=== PATIENT | male | born 1965 | race African-American/Black ===

== ENCOUNTER 2016-05-06 09:26 | Day surgery (SDC) | payer OTHER ==
[2016-05-05 14:15] VITALS: BMI 33.9
[2016-05-06] MEDS ORDERED: SUCCINYLCHOLINE CHLORIDE 200 MG/10 ML VIAL ONE (09:48)
[2016-05-06] MEDS ORDERED: PROPOFOL 60 ML ONE (09:48)
[2016-05-06] MEDS ORDERED: LIDOCAINE HCL/PF 2% SDV 5ML VIAL ONE (09:48)
[2016-05-06 09:58] VITALS: TEMP 97.9
[2016-05-06 13:40] VITALS: BP 114/60; PULSE 78
--- NOTE | 2016-05-07 15:09 | PATH ---
Surgical Pathology Report Patient Name: SUSANA ALFORD [facility]. Rec. #: [id number] /Age/Gender: 1965 (Age: 50) / M Account: [id number] Location: U-ENDOSCOPY Taken: 05/06/2016 Received: 05/06/2016 Reported: 05/07/2016 Physicians: Tristen Jj D.O. Specimen(s) Received BX POLYP RECTOSIGMOID COLON Clinical History Screening colonoscopy Colon polyps Final Diagnosis COLON, RECTOSIGMOID, POLYPS, BIOPSY: HYPERPLASTIC POLYPS. Electronically Signed Trey Damico M.D. Gross Description Received in formalin, labeled "biopsy polyps rectosigmoid:" are 2 sierra, irregular portions of soft tissue averaging 0.3 cm in greatest dimension. The specimens are submitted in toto in one cassette. /05/06/201605/06/2016
== END 2016-05-06 13:55 | disposition home or self-care (01) ==
LOC: JASU-ENDO 09:26
PROVIDERS: ATTEND Internal Medicine Gastroenterology
PROC: 0DBN8ZX Excision of Sigmoid Colon, Via Natural or Artificial Opening Endoscopic, Diagnostic (ICD-10-PCS; principal; 2016-05-06 09:00)
DX: Z12.11 Encounter for screening for malignant neoplasm of colon (principal); D12.7 Benign neoplasm of rectosigmoid junction; K64.8 Other hemorrhoids
CPT/HCPCS: 88305-TC

== ENCOUNTER 2017-09-03 11:48 | Emergency (ER) | payer OTHER ==
[2017-09-03 11:55] VITALS: BP 107/77; PULSE 100; TEMP 98.2; BMI 38.3
[2017-09-03] MEDS ORDERED: KETOROLAC TROMETHAMINE 30 MG/1 ML VIAL IM ONE (12:04)
[2017-09-03] MEDS ORDERED: KETOROLAC TROMETHAMINE 30 MG/1 ML VIAL ONE (12:10)
--- NOTE | 2017-09-03 12:18 | PDOC ---
History of Present Illness - General Chief Complaint: Pain, Acute Stated Complaint: KNEE PAIN Time Seen by Provider: 09/03/17 11:53 - History of Present Illness Initial Comments: 09/03/17 12:25 52 yo M w a prior back surgery in Jan 2017, former drug use, is here bc his left knee gave out on him one hour ago and he can't bear weight on his knee. He was here on August 19 for the same problem and was sent home on pain meds and with a PT recommendation. He says the PT has not helped. He is not in active pain but his knee hurts when he bears any weight on it. He is on methadone 40 mg. He denies recent fevers, headaches, knee trauma, N/V/D, infections, chest pain, SOB, urinary or bowel problems, IVDU. Past History - Past Medical History Allergies/Adverse Reactions: Allergies Allergy/AdvReac Type Severity Reaction Status Date / Time No Known Drug Allergies Allergy Verified 10/16/16 17:00 Home Medications: Ambulatory Orders Methadone (Detox) [Dolophine -] 40 mg PO DAILY 08/23/13 Furosemide [Lasix -] 20 mg PO BID 01/19/14 Atorvastatin Ca [Lipitor] 40 mg PO HS #30 tablet 01/25/14 Asthma: Yes (hx BRONCHITIS) COPD: No - Surgical History Abdominal Surgery: Yes Appendectomy: Yes (1978) - Immunization History Immunization Up to Date: No - Suicide/Smoking/Psychosocial Hx Smoking Status: Yes Smoking History: Unknown if ever smoked Have you smoked in the past 12 months: No Number of Cigarettes Smoked Daily: 7 If you are a former smoker, when did you quit?: 2013 Information on smoking cessation initiated: No 'Breaking Loose' booklet given: 01/19/14 Hx Alcohol Use: No Drug/Substance Use Hx: Yes (INTRANASAL HEROIN-pt denies use @present) Substance Use Type: Heroin, Prescribed Hx Substance Use Treatment: Yes (METHADONE) Review of Systems - Review of Systems Comments:: 09/03/17 12:29 Left Knee: denies swelling. Positive for pain. Can't bear weight. MUSCULOSKELETAL: Absent: myalgia, arthralgia, joint swelling CONSTITUTIONAL: Absent: fever, chills, diaphoresis, generalized weakness, malaise, loss of appetite HEENT: Absent: rhinorrhea, nasal congestion, throat pain, throat swelling, difficulty swallowing, mouth swelling, ear pain, eye pain, visual Changes CARDIOVASCULAR: Positive: Peripheral edema Absent: chest pain, syncope, palpitations, irregular heart rate, lightheadedness , RESPIRATORY: Positive: Wheezing Absent: cough, shortness of breath, dyspnea with exertion, orthopnea, stridor, hemoptysis GASTROINTESTINAL: Absent: abdominal pain, abdominal distension, nausea, vomiting, diarrhea, constipation, melena, hematochezia GENITOURINARY: Absent: dysuria, frequency, urgency, hesitancy, hematuria, flank pain, genital pain SKIN: Absent: rash, itching, pallor HEMATOLOGIC/IMMUNOLOGIC: Absent: easy bleeding, easy bruising, lymphadenopathy, frequent infections ENDOCRINE: Absent: unexplained weight gain, unexplained weight loss, heat intolerance, cold intolerance NEUROLOGIC: Absent: headache, focal weakness or paresthesias, dizziness, unsteady gait, seizure, mental status changes, bladder or bowel incontinence PSYCHIATRIC: Absent: anxiety, depression, suicidal or homicidal ideation, hallucinations. *Physical Exam - Vital Signs Last Vital Signs Temp Pulse Resp BP Pulse Ox 98.2 F 100 H 18 107/77 98 09/03/17 11:53 09/03/17 11:53 09/03/17 11:53 09/03/17 11:53 09/03/17 11:53 - Physical Exam Comments: 09/03/17 12:32 Left Knee: The knee is not swollen or erythematous. It looks the same on external appearance to the R knee. It is not warm. There is decreased strength on extension on L knee compared to the R. Equal strength on flexion. normal sensation in both knees. Negative anterior and posterior drawer test. Patient walks with a limp and could not adequately assess for jude or thesaly given lack of ability to bear weight on knee. There is no bony tenderness at the patella or the head of the fibula. Patient is able to flex his knee more than 90 degrees. GENERAL: Patient is somnolent. Well developed, well nourished. No acute distress. HEENT: Normocephalic, atraumatic. PERRLA, EOMI. No conjunctival pallor. Sclera are non- icteric. Moist mucous membranes. Oropharynx is clear. NECK: Supple. Full ROM. No JVD. Carotid pulses 2+ and symmetric, without bruits. No thyromegaly. No lymphadenopathy. CARDIOVASCULAR: Regular rate and rhythm. No murmurs, rubs, or gallops. Distal pulses are 2+ and symmetric. PULMONARY: There is mild diffuse bilateral wheezing. No evidence of respiratory distress. Lungs clear to auscultation bilaterally. rales or rhonchi. ABDOMINAL: Soft. Non-tender. Non-distended. No rebound or guarding. No organomegaly. Normoactive bowel sounds. MUSCULOSKELETAL Normal range of motion at all joints. No bony deformities or tenderness. No CVA tenderness. EXTREMITIES: 2+ edema of both ankles. No cyanosis. No clubbing. No calf tenderness. SKIN: Warm and dry. Normal capillary refill. No rashes. No jaundice. NEUROLOGICAL: Somnolent. Cranial nerves 2-12 intact. No deficits to light touch and temperature in face, upper extremities and lower extremities. No motor deficits in the in face, upper extremities and lower extremities. Normoreflexic in the upper and lower extremities. Normal speech. Toes are down-going bilaterally. Gait is normal without ataxia. PSYCHIATRIC: Cooperative. Good eye contact. Appropriate mood and affect. Medical Decision Making - Medical Decision Making 09/03/17 12:37 52 yo M here with bc his knee gave out on him and he was having difficulty ambulating. He has not had any traum or recent infections. Plan: Xr to r/o trauma or fracture, pain meds, and orthopedic FU. Dispo: Xr didnt show any acute pathology. DC patient with ortho fu, pain meds, and PT referall. 09/03/17 14:32 *DC/Admit/Observation/Transfer Diagnosis at time of Disposition: Left knee pain - Discharge Dispostion Disposition: HOME Condition at time of disposition: Stable Decision to Admit order: No - Referrals Referrals: Ravinder Xie MD [Staff Physician] - - Patient Instructions Printed Discharge Instructions: DI for Knee Pain Additional Instructions: Please make sure to continue doing physical therapy for your knee. Make sure to schedule an appointment with the orthopedist we are referring you to within 2 weeks. You may take tylenol or motrin for pain. Come back to the ER if your symptoms get worse or if you develop a high fever. - Post Discharge Activity
--- NOTE | 2017-09-03 12:30 | PDOC ---
Attending Attestation - Resident Resident Name: PinacandaceTawandaJordi - ED Attending Attestation I have performed the following: I have examined & evaluated the patient, The case was reviewed & discussed with the resident, I agree w/resident's findings & plan, Exceptions are as noted - HPI HPI: 09/03/17 12:49 The patient is a 52 year old male, with a significant past medical history of bronchitis, asthma, arthritis (left knee), who presents to the emergency department complaining of left knee pain. The patient states that approximately 1 hour ago his knee gave out while he was walking and he is currently unable to bear weight on it. He denies falling at this time. Last event of this occurrence was 08/19/17 when he visited the ED here and was diagnosed with arthritis. He reports shortly attending physical therapy for the knee pain. Of note, the patient ambulates with a cane at baseline. Pt currently sleepy, states he took his methadone dose just prior to his knee giving out. The patient denies a history of heart failure, but endorses regularly taking Lasix for unknown reason. Denies changes to back pain. Denies chest pain, shortness of breath, headache, and dizziness. Denies fevers, chills, nausea, vomiting, diarrhea, and constipation. Denies dysuria, frequency, urgency, and hematuria. Allergies: NKA Past surgical history: back surgery (01/2017), appendectomy (1978) Social history: Heroin use, on methadone (last dose this morning). Former tobacco use ( ppd), quit in 2013. PCP: unknown Neurologist: Dr. Nava - Physicial Exam PE: 09/03/17 12:51 GENERAL: Awake, sleepy but arousable HEAD: No signs of trauma EYES: PERRLA, EOMI, sclera anicteric, conjunctiva clear ENT: Auricles normal inspection, hearing grossly normal, nares patent, oropharynx clear without exudates. Moist mucosa NECK: Normal ROM, supple, no lymphadenopathy, JVD, or masses LUNGS: Breath sounds equal, clear to auscultation bilaterally. No wheezes, and no crackles HEART: Regular rate and rhythm, normal S1 and S2, no murmurs, rubs or gallops ABDOMEN: Soft, nontender, normoactive bowel sounds. No guarding, no rebound. No masses EXTREMITIES: 2+ pitting symmetric edema bl LE (pt states is baseline). FROM to L knee with ttp over MCL. Negative anterior drawer test. No erythema or warmth. No palpable effusions. Able to bear weight, but with pain. BACK: No midline spinal tenderness in cervical/thoracic/lumbar region NEUROLOGICAL: Normal speech, cranial nerves intact, 5/5 strength in all 4 extremities, normal sensation to light touch in all 4 extremities, normal cerebellar exam, antalgic but steady gait with cane, normal reflexes and tone SKIN: Warm, Dry, normal turgor, no rashes or lesions noted." - Medical Decision Making 09/03/17 12:54 52yo M hx arthiritis presents to ED after "knee gave out." Denies fall. Vitals wnl. Likely arthritic pain, unlikely bony injury. Will obtain XR and re- evaluate. 09/03/17 13:13 XR with effusion. Will DC to f/u with ortho I discussed the physical exam findings, ancillary test results and final diagnoses with the patient. I answered all of the patient's questions. The patient was satisfied with the care received and felt comfortable with the discharge plan and treatment plan. The patient will call their primary care physician within 24 hours to arrange follow-up and will return to the Emergency Department with any new, persistent or worsening symptoms. <Murray Baxter - Last Filed: 09/03/17 13:13> - Medical Decision Making 09/03/17 13:21 Knee X-Ray was reviewed by Dr. Baxter and over-read by Radiology. Impression: Suprapatellar joint effusion. Degenerative changes of the patella. Marked osteoarthritis involving the medial joint compartment of the knee. Documentation prepared by Radha Kirkland, acting as medical resident for Murray Baxter MD. <Radha Kirkland - Last Filed: 09/03/17 13:22>
== END 2017-09-03 13:31 | disposition home or self-care (01) ==
LOC: JER 11:48
PROC: 3E0233Z Introduction of Anti-inflammatory into Muscle, Percutaneous Approach (ICD-10-PCS; principal; 2017-09-03)
DX: M25.562 Pain in left knee (principal); J40 Bronchitis, not specified as acute or chronic
CPT/HCPCS: 73562-TC-LT-FY; 99281-25

== ENCOUNTER 2018-09-05 21:12 | Emergency (ER) | payer OTHER ==
[2018-09-05 21:20] VITALS: BP 134/76; PULSE 117; TEMP 98.6; BMI 34.6
[2018-09-05] MEDS ORDERED: ALBUTEROL SO4 2.5/IPRATROPIUM 0.5 INH SOL 3 ML VIAL.NEB. NEB ONE (22:43)
[2018-09-05] MEDS ORDERED: PSEUDOEPHEDRINE HCL 60 MG TABLET PO ONE (22:43)
[2018-09-05] MEDS ORDERED: DEXAMETHASONE LIQUID 0.5 MG/5 ML 240 ML BULK BOTTLE PO ONE (22:43)
[2018-09-05] MEDS ORDERED: ALBUTEROL SO4 0.083% IH SOL 2.5 MG/3 ML VIAL.NEB. NEB ONE (23:06)
[2018-09-05] MEDS ORDERED: DEXAMETHASONE SOD PHOSPHATE 10 MG/1 ML VIAL ONE (23:06)
[2018-09-05] MEDS ORDERED: IPRATROPIUM BR 0.02% 0.5 MG/2.5 ML VIAL.NEB. NEB ONE (23:06)
[2018-09-05] MEDS ORDERED: PSEUDOEPHEDRINE HCL 60 MG TABLET ONE (23:07)
[2018-09-05] MEDS ORDERED: ALBUTEROL SO4 8 GM HFA INHALER IH ONE (23:28)
--- NOTE | 2018-09-05 23:41 | PDOC ---
Documentation entered by Alma Bridges SCRIBE, acting as scribe for Татьяна Arthur MD. Татьяна Arthur MD: This documentation has been prepared by the Yuliana dozier Nirvannie, SCRIBE, under my direction and personally reviewed by me in its entirety. I confirm that the documentation accurately reflects all work, treatment, procedures, and medical decision making performed by me. History of Present Illness - General Chief Complaint: Shortness of Breath Stated Complaint: ASTHMA Time Seen by Provider: 09/05/18 22:18 History Source: Patient Exam Limitations: No Limitations - History of Present Illness Initial Comments: 09/05/18 22:54 The patient is a 53 year old male, with a significant past medical history of NIDDM and asthma, who presents to the emergency department with, shortness of breath and sinus pressure. Patient notes using his Flovent, without relief prompting his arrival to the ED. He denies any recent chest pain. He denies any recent fevers, chills, headache or dizziness. He denies any recent nausea, vomit, diarrhea or constipation. He denies any recent dysuria, frequency, urgency or hematuria. Allergies: NKDA Past surgical history: Appendectomy. Back surgery (01/2017) Social History: Heroin use, on methadone. Former smoker (Quit in 2003 7 cigarettes per day). Neurologist: Dr. Nava Past History - Past Medical History Allergies/Adverse Reactions: Allergies Allergy/AdvReac Type Severity Reaction Status Date / Time No Known Drug Allergies Allergy Verified 10/16/16 17:00 Home Medications: Ambulatory Orders Methadone (Detox) [Dolophine -] 40 mg PO DAILY 08/23/13 Furosemide [Lasix -] 20 mg PO BID 01/19/14 Atorvastatin Ca [Lipitor] 40 mg PO HS #30 tablet 01/25/14 Buspirone HCl [Buspar -] 10 mg PO BID #70 tablet 01/13/18 Mirtazapine [Remeron -] 30 mg PO HS 01/13/18 Mirtazapine [Remeron -] 30 mg PO HS #35 tablet 01/13/18 Buspirone HCl [Buspar -] 10 mg PO BID #60 tablet 05/28/18 Mirtazapine [Remeron -] 15 mg PO HS #30 tablet 05/28/18 Buspirone HCl [Buspar -] 10 mg PO BID #60 tablet 06/21/18 Mirtazapine [Remeron -] 15 mg PO HS #30 tablet 06/21/18 Buspirone HCl [Buspar -] 10 mg PO BID #60 tablet 08/18/18 Mirtazapine [Remeron -] 15 mg PO HS #30 tablet 08/18/18 Pseudoephedrine HCl [Sudafed] 60 mg PO TID #30 tablet 09/05/18 Asthma: Yes (hx BRONCHITIS) COPD: No Diabetes: Yes (NIDDM) - Surgical History Abdominal Surgery: Yes Appendectomy: Yes (1978) - Immunization History Immunization Up to Date: No - Suicide/Smoking/Psychosocial Hx Smoking Status: Yes Smoking History: Former smoker Have you smoked in the past 12 months: No Number of Cigarettes Smoked Daily: 7 If you are a former smoker, when did you quit?: 2008 Information on smoking cessation initiated: Yes 'Breaking Loose' booklet given: 01/19/14 Hx Alcohol Use: No Drug/Substance Use Hx: No Substance Use Type: Heroin, Prescribed Hx Substance Use Treatment: Yes (METHADONE) Review of Systems - Review of Systems Able to Perform ROS?: Yes Comments:: 09/05/18 22:54 GENERAL/CONSTITUTIONAL: No fever or chills. No weakness. HEAD, EYES, EARS, NOSE AND THROAT: +Sinus pressure. No change in vision. No ear pain or discharge. No sore throat. CARDIOVASCULAR: No chest pain. RESPIRATORY: +SOB. +No hemoptysis. GASTROINTESTINAL: No nausea, vomiting, diarrhea or constipation. GENITOURINARY: No dysuria, frequency, or change in urination. MUSCULOSKELETAL: No joint or muscle swelling or pain. No neck or back pain. SKIN: No rash NEUROLOGIC: No headache, vertigo, loss of consciousness, or change in strength/ sensation. ENDOCRINE: No increased thirst. No abnormal weight change. HEMATOLOGIC/LYMPHATIC: No anemia, easy bleeding, or history of blood clots. ALLERGIC/IMMUNOLOGIC: No hives or skin allergy. All Other Systems: Reviewed and Negative *Physical Exam - Vital Signs Last Vital Signs Temp Pulse Resp BP Pulse Ox 98.6 F 117 H 20 134/76 97 09/05/18 21:17 09/05/18 21:17 09/05/18 21:17 09/05/18 21:17 09/05/18 22:31 - Physical Exam Comments: 09/05/18 22:55 GENERAL: Awake, alert, and fully oriented, in no acute distress HEAD: No signs of trauma EYES: PERRLA, EOMI, sclera anicteric, conjunctiva clear ENT: Auricles normal inspection, hearing grossly normal, nares patent, oropharynx clear without exudates. Moist mucosa NECK: Normal ROM, supple, no lymphadenopathy, JVD, or masses LUNGS: +Right lower lobe wheezing. No rhonchi. no crackles HEART: Regular rate and rhythm, normal S1 and S2, no murmurs, rubs or gallops ABDOMEN: Soft, nontender, normoactive bowel sounds. No guarding, no rebound. No masses EXTREMITIES: Normal range of motion, no edema. No clubbing or cyanosis. No cords, erythema, or tenderness NEUROLOGICAL: Cranial nerves II through XII grossly intact. Normal speech SKIN: Warm, Dry, normal turgor, no rashes or lesions noted. *DC/Admit/Observation/Transfer Diagnosis at time of Disposition: Asthma attack - Discharge Dispostion Disposition: HOME Condition at time of disposition: Stable Decision to Admit order: No - Prescriptions Prescriptions: Pseudoephedrine HCl [Sudafed] 60 mg PO TID #30 tablet - Referrals - Patient Instructions Printed Discharge Instructions: Diet High in Fruits and Vegetables May Reduce Asthma Exacerbations - Post Discharge Activity
== END 2018-09-05 23:56 | disposition home or self-care (01) ==
LOC: JER 21:12
PROC: 3E0F7GC Introduction of Other Therapeutic Substance into Respiratory Tract, Via Natural or Artificial Opening (ICD-10-PCS; principal; 2018-09-05)
DX: J45.901 Unspecified asthma with (acute) exacerbation (principal); Z87.891 Personal history of nicotine dependence; E11.9 Type 2 diabetes mellitus without complications
CPT/HCPCS: 94640; 99281-25

== ENCOUNTER 2018-09-06 01:50 | Inpatient (IN) | payer OTHER ==
[2018-09-06] MEDS ORDERED: ALBUTEROL SO4 2.5/IPRATROPIUM 0.5 INH SOL 3 ML VIAL.NEB. NEB ONE ×2 (01:54→09:01)
[2018-09-06] MEDS ORDERED: TERBUTALINE SULFATE 1 MG/1 ML VIAL SQ ONE ×4 (02:08→04:27)
[2018-09-06 02:25] VITALS: BMI 34.6
--- NOTE | 2018-09-06 03:10 | PDOC ---
History of Present Illness - General Chief Complaint: Asthma Stated Complaint: ASTHMA Time Seen by Provider: 09/06/18 02:08 History Source: Patient Exam Limitations: No Limitations - History of Present Illness Initial Comments: 53 yo M PMH asthma, HTN, NIDDM, p/w asthma exacerbation. Was seen here last night for same, received dexamethasone and Duonebs. Went home, had same symptoms , tried Flovent w/o success. Received albuterol here, says difficulty breathing improved from 8/10 to 2/10. Endorses chest tightness, but denies CP, CHRISTY, dizziness, lightheadedness, LOC, constipation/diarrhea, fevers/chills, N/V. Currently on 2LNC after sats at 94%, now up to 97%. 09/06/18 03:10 Past History - Past Medical History Allergies/Adverse Reactions: Allergies Allergy/AdvReac Type Severity Reaction Status Date / Time No Known Drug Allergies Allergy Verified 10/16/16 17:00 Home Medications: Ambulatory Orders Furosemide [Lasix -] 20 mg PO BID 01/19/14 Atorvastatin Ca [Lipitor] 40 mg PO HS #30 tablet 01/25/14 Buspirone HCl [Buspar -] 10 mg PO BID #60 tablet 08/18/18 Mirtazapine [Remeron -] 15 mg PO HS #30 tablet 08/18/18 Albuterol Sulfate Inhaler - [Ventolin Hfa Inhaler -] 1 - 2 inh PO Q4H #1 inhaler 09/05/18 Azithromycin [Zithromax Tri-Derrick (3 DAYS) -] 500 mg PO DAILY #3 tablet 09/06/18 Asthma: Yes (hx BRONCHITIS) COPD: No Diabetes: Yes (NIDDM) - Surgical History Abdominal Surgery: Yes Appendectomy: Yes (1978) - Immunization History Immunization Up to Date: No - Suicide/Smoking/Psychosocial Hx Smoking Status: Yes Smoking History: Never smoked Have you smoked in the past 12 months: No Number of Cigarettes Smoked Daily: 7 If you are a former smoker, when did you quit?: 2008 'Breaking Loose' booklet given: 01/19/14 Hx Alcohol Use: No Drug/Substance Use Hx: No Substance Use Type: Heroin, Prescribed Hx Substance Use Treatment: Yes (METHADONE) Review of Systems - Review of Systems Able to Perform ROS?: Yes Is the patient limited Swedish proficient: No Constitutional: No: Chills, Fever, Loss of Appetite HEENTM: No: Eye Pain, Double Vision, Ear Discharge, Tinnitus, Hearing Loss, Difficulty Swallowing Respiratory: Yes: Shortness of Breath. No: Cough, Orthopnea Cardiac (ROS): Yes: Chest Tightness. No: Chest Pain, Irregular Heart Rate, Lightheadedness, Palpitations ABD/GI: No: Constipated, Diarrhea, Nausea, Vomiting Neurological: No: Headache, Numbness, Pre-Existing Deficit, Seizure, Tingling *Physical Exam - Vital Signs Last Vital Signs Temp Pulse Resp BP Pulse Ox 98.7 F 100 H 24 H 114/70 97 09/06/18 02:04 09/06/18 02:04 09/06/18 02:04 09/06/18 02:04 09/06/18 02:20 ED Treatment Course - LABORATORY CBC & Chemistry Diagram: 09/06/18 03:15 09/06/18 03:15 - Medications Given in the ED: ED Medications Discontinued Medications Generic Name Dose Route Start Last Admin Trade Name Chuchoq PRN Reason Stop Dose Admin Terbutaline Sulfate 0.25 mg 09/06/18 02:08 09/06/18 02:18 Brethine Injection - SQ 09/06/18 02:09 0.25 mg ONCE ONE Administration Medical Decision Making - Medical Decision Making Will give 2 g magnesium, CBC CMP CXR EKG trop. 09/06/18 03:09 WBC 14.8 09/06/18 03:49 Patient breathing better. Complaining of chronic L knee pain, on Ibuprofen at home. Giving PO ibuprofen. 09/06/18 04:02 Patient breathing well, satting 97% on RA. 09/06/18 04:42 Patient still having inspiratory wheezing, also complaining of chills. 09/06/18 05:49 *DC/Admit/Observation/Transfer Diagnosis at time of Disposition: Asthma attack - Discharge Dispostion Condition at time of disposition: Guarded Decision to Admit order: Yes - Prescriptions Prescriptions: Azithromycin [Zithromax Tri-Derrick (3 DAYS) -] 500 mg PO DAILY #3 tablet - Referrals Referrals: Margie Harmon MD [Primary Care Provider] - - Patient Instructions Additional Instructions: You were seen for an asthma attack. Your breathing improved with medication. Please finish your course of Zpak and continue to use your home medications. Return to the ED for worsened breathing that does not respond to your home meds. - Post Discharge Activity
[2018-09-06 03:26] LABS: HEMOGLOBIN 12.6 GM/dL (11.7-16.9); RBC 4.66 M/mm3 (4.00-5.60)
[2018-09-06 03:33] LABS: BASO % 1.1 % (0-2.0); EOS % 0.1 % (0-4.5); HEMATOCRIT 38.4 % (35.4-49); LYMPH % 7.8 % (8-40); MCHC 32.7 g/dl (32.0-35.9); MEAN CELL VOLUME 82.4 fl (80-96); PLATELET COUNT 272 K/MM3 (134-434); RDW 15.4 % (11.9-15.9); WHITE BLOOD COUNT 14.8 K/mm3 (4.0-10.0)
--- NOTE | 2018-09-06 03:50 | PDOC ---
Attending Attestation - Resident Resident Name: Esau Murphy - ED Attending Attestation I have performed the following: I have examined & evaluated the patient, The case was reviewed & discussed with the resident, I agree w/resident's findings & plan - HPI HPI: 09/06/18 03:49 Pt returns with asthma exacerbation. I saw him earlier tonight. He states that he went home and felt worse. He will have labs and CXRand ekg. - Physicial Exam PE: 09/06/18 03:49 Agree with resident exam - Medical Decision Making 09/06/18 03:50 CXR and labs pending. Pt received terbutaline and duoneb. Earlier tonight her received steroids. 09/06/18 05:49 Pt will come in as a COPD exacerbation Heart Score/ECG Review - ECG Intrepretation Rhythm: Regular Rhythm - [place]: Normal - P and MO Delta Wave(s) Present: No WPW: No - QRS Poor R Wave Progression: No Q Wave Present: No - ST and T Early Repolarization: No Non Specific ST-T Wave changes: No - ECG Impressions Normal ECG: Yes Non-specific ST Elevation: No Ischemic Changes: No
[2018-09-06 03:53] LABS: ALBUMIN 3.9 g/dl (3.4-5.0); BILIRUBIN,TOTAL 0.2 mg/dL (0.2-1); BLOOD UREA NITROGEN 13.3 mg/dL (7-18); CALCIUM 8.8 mg/dL (8.5-10.1); CREATININE 1.1 mg/dL (0.55-1.3); TOT PROT 7.4 g/dl (6.4-8.2)
[2018-09-06] MEDS ORDERED: MAGNESIUM SULF 50% (8.12 MEQ/2 ML-1 GM VIAL) IVPB ONE (03:56)
[2018-09-06] MEDS ORDERED: IBUPROFEN 400 MG TABLET (FP) PO ONE ×2 (04:01→04:27)
[2018-09-06] MEDS ORDERED: MAGNESIUM 1GM/D5W - 1 GM/100 ML IVPB IVPB ONE (04:28)
[2018-09-06] MEDS ORDERED: AZITHROMYCIN IVPB 500 MG in DEXTROSE 5%-WATER - 250 ML IVPB ONE (04:56)
[2018-09-06] MEDS ORDERED: CEFTRIAXONE 1 GM in DEXTROSE 5%-WATER - 50 ML IVPB ONE (04:56)
[2018-09-06] MEDS ORDERED: CEFTRIAXONE 1 GM/50 ML BAG ONE (05:01)
[2018-09-06] MEDS ORDERED: AZITHROMYCIN IVPB 500 MG/250 ML BAG IVPB ONE (05:42)
[2018-09-06] MEDS ORDERED: ACETAMINOPHEN 1000 MG/100 ML VIAL (NON FORMULARY) IVPB ONE (05:49)
[2018-09-06] MEDS ORDERED: ACETAMINOPHEN INJECTION 100 ML IVPB ONE (06:42)
--- NOTE | 2018-09-06 07:57 | HP ---
CHIEF COMPLAINT:shortness of breath PCP:Dr. Jacob Olivares HISTORY OF PRESENT ILLNESS: Patient is a 53 year old male with past medical history of asthma/COPD, HTN, and DM presented to the ED due to shortness of breath for 2 days. Patient reported experiencing SOB 2 days ago and came to the ED where he received Decadron and duonebs, and was sent home on Azithromycin. Yesterday, patient continued to experience shortness of breath and came back to the ED. Patient denies fever, chills, headache, dizziness, chest pain, palpitations, abdominal pain, diarrhea, urinary symptoms. Patient also reports severe left knee pain, that he has experienced for a few years. He reports since he had the back surgery, his RLE had been weaker and has been putting more weight on his left leg, and in the last few months, experienced worsening pain of the left knee. He also reports RLE swelling since the surgery. ER course was notable for: (1)WBC 14.9 (2)CXR - no acute lung pathology (3)Ceftriaxone, Azithromycin given Recent Travel:denies PAST MEDICAL HISTORY: asthma COPD HTN DM PAST SURGICAL HISTORY: Lower back surgery appendectomy Social History: Smoking:previous smoker, quit >10 years ago Alcohol:everyday drinker, at least 2 bottles per day (last drink 09/05) Drugs: Heroin, on methadone Family History:noncontributory Allergies No Known Drug Allergies Allergy (Verified 10/16/16 17:00) HOME MEDICATIONS: Home Medications Medication Instructions Recorded Furosemide [Lasix -] 20 mg PO BID 01/19/14 Atorvastatin Ca [Lipitor] 40 mg PO HS #30 tablet 01/25/14 Buspirone HCl [Buspar -] 10 mg PO BID #60 tablet 08/18/18 Mirtazapine [Remeron -] 15 mg PO HS #30 tablet 08/18/18 Albuterol Sulfate Inhaler - 1 - 2 inh PO Q4H #1 inhaler 09/05/18 [Ventolin Hfa Inhaler -] Azithromycin [Zithromax Tri-Derrick (3 500 mg PO DAILY #3 tablet 09/06/18 DAYS) -] REVIEW OF SYSTEMS CONSTITUTIONAL: Absent: fever, chills, diaphoresis, generalized weakness, malaise, loss of appetite, weight change HEENT: Absent: rhinorrhea, nasal congestion, throat pain, throat swelling, difficulty swallowing, mouth swelling, ear pain, eye pain, visual changes CARDIOVASCULAR: Absent: chest pain, syncope, palpitations, irregular heart rate, lightheadedness , peripheral edema RESPIRATORY: shortness of breath Absent: cough, dyspnea with exertion, orthopnea, wheezing, stridor, hemoptysis GASTROINTESTINAL: Absent: abdominal pain, abdominal distension, nausea, vomiting, diarrhea, constipation, melena, hematochezia GENITOURINARY: Absent: dysuria, frequency, urgency, hesitancy, hematuria, flank pain, genital pain MUSCULOSKELETAL: Absent: myalgia, arthralgia, joint swelling, back pain, neck pain SKIN: Absent: rash, itching, pallor HEMATOLOGIC/IMMUNOLOGIC: Absent: easy bleeding, easy bruising, lymphadenopathy, frequent infections ENDOCRINE: Absent: unexplained weight gain, unexplained weight loss, heat intolerance, cold intolerance NEUROLOGIC: Absent: headache, focal weakness or paresthesias, dizziness, unsteady gait, seizure, mental status changes, bladder or bowel incontinence PSYCHIATRIC: Absent: anxiety, depression, suicidal or homicidal ideation, hallucinations. PHYSICAL EXAMINATION Vital Signs - 24 hr 09/06/18 09/06/18 09/06/18 02:04 02:20 03:06 Temperature 98.7 F Pulse Rate 100 H Pulse Rate [ Left Radial] Respiratory 24 H Rate Blood Pressure 114/70 Blood Pressure [Right Arm] O2 Sat by Pulse 95 97 97 Oximetry (%) 09/06/18 09/06/18 03:39 05:14 Temperature Pulse Rate Pulse Rate [ 112 H 106 H Left Radial] Respiratory 20 20 Rate Blood Pressure Blood Pressure 108/59 L 120/67 [Right Arm] O2 Sat by Pulse 97 96 Oximetry (%) GENERAL: Awake, alert, and fully oriented, in no acute distress. HEAD: Normal with no signs of trauma. EYES: PERRLA, EOMI, sclera anicteric, conjunctiva clear. EARS, NOSE, THROAT: Moist mucous membranes. NECK: Normal range of motion, supple. LUNGS: Decreased breath sound bilateral bases HEART: Regular rate and rhythm, normal S1 and S2 without murmur, rub or gallop. ABDOMEN: Soft, nontender, not distended, normoactive bowel sounds. MUSCULOSKELETAL: Normal range of motion at all joints. UPPER EXTREMITIES: 2+ pulses, warm, well-perfused. No peripheral edema. LOWER EXTREMITIES: 2+ pulses, warm, well-perfused. RLE: +2 nonpitting edema NEUROLOGICAL: Cranial nerves II-XII intact. Normal speech. Gait not observed. PSYCHIATRIC: Cooperative. Good eye contact. Appropriate mood and affect. SKIN: Warm, dry, normal turgor, no rashes or lesions noted. Laboratory Results - last 24 hr 09/06/18 09/06/18 09/06/18 03:15 03:15 03:15 WBC 14.8 H RBC 4.66 Hgb 12.6 Hct 38.4 MCV 82.4 MCH 27.0 MCHC 32.7 RDW 15.4 Plt Count 272 MPV 8.0 Absolute Neuts (auto) 13.2 H Neutrophils % 89.0 H Lymphocytes % 7.8 L D Monocytes % 2.0 L Eosinophils % 0.1 D Basophils % 1.1 Nucleated RBC % 0 Sodium 140 Potassium 4.0 Chloride 102 Carbon Dioxide 29 Anion Gap 9 BUN 13.3 Creatinine 1.1 Est GFR (CKD-EPI)AfAm 87.74 Est GFR (CKD-EPI)NonAf 75.70 Random Glucose 161 H Calcium 8.8 Total Bilirubin 0.2 AST 44 H ALT 41 Alkaline Phosphatase 115 Troponin I < 0.02 Total Protein 7.4 Albumin 3.9 ASSESSMENT/PLAN: Patient is a 53 year old male with past medical history of asthma/COPD, HTN, and DM presented to the ED due to shortness of breath for 2 days. Patient reported experiencing SOB 2 days ago. #SOB likely 2/2 COPD exacerbation -Leukocytosis, likely 2/2 steroid use -CXR - no acute lung pathology -Ceftriaxone and Azithromycin given at the ED -Continue Azithromycin 500mg daily -Duonebs RQID and PRN -IV solu-medrol -supplemental O2 to keep SpO2 >90% #RLE swelling/weakness -RLE duplex to rule out DVT -will consult Neurology for RLE weakness. #EtOH abuse -last drink yesterday, CIWA 0 -will monitor for sign of EtOH withdrawal -may give PRN ativan #Polysubstance abuse -Continue Methadone, confirmed with [facility] #HTN -Continue Lasix #DM -Hold home meds -Insulin sliding scale implemented -BGM ACHs #FEN -Not on any standing fluids -Electrolytes wnl, routine bmp monitoring -Sodium restricted/diabetic diet #Prophylaxis -Lovenox 40mg sq daily #Disposition -full code -admit to med surg Visit type - Emergency Visit Emergency Visit: Yes ED Registration Date: 09/06/18 Care time: The patient presented to the Emergency Department on the above date and was hospitalized for further evaluation of their emergent condition. - New Patient This patient is new to me today: Yes Date on this admission: 09/08/18 - Critical Care Critical Care patient: No ATTENDING PHYSICIAN STATEMENT I saw and evaluated the patient. I reviewed the resident's note and discussed the case with the resident. I agree with the resident's findings and plan as documented. SUBJECTIVE: OBJECTIVE: ASSESSMENT AND PLAN:
[2018-09-06] MEDS ORDERED: ALBUTEROL SO4 2.5/IPRATROPIUM 0.5 INH SOL 3 ML VIAL.NEB. NEB SCH (08:00)
[2018-09-06] MEDS ORDERED: methylPREDNISolone NA SUCC 40 MG/1 ML VIAL ONE (09:01)
[2018-09-06] MEDS ORDERED: FOLIC ACID 1 MG TABLET (FP) ONE (09:01)
[2018-09-06] MEDS ORDERED: ENOXAPARIN NA (PORCINE) 40 MG/0.4 ML DISP.SYRIN SQ ONE (09:01)
[2018-09-06] MEDS: ALBUTEROL SO4 2.5/IPRATROPIUM 0.5 INH SOL 3 ML VIAL.NEB. NEB SCH ×4 (09:06→20:50)
[2018-09-06] MEDS: ENOXAPARIN NA (PORCINE) 40 MG/0.4 ML DISP.SYRIN SQ SCH (09:07)
[2018-09-06] MEDS: FOLIC ACID 1 MG TABLET (FP) PO SCH (09:07)
[2018-09-06] MEDS: methylPREDNISolone NA SUCC 40 MG/1 ML VIAL IVPUSH SCH ×2 (09:07→23:40)
[2018-09-06 09:10] LABS: PH,URINE 5.5 (5.0-8.0); URINE APPEARANCE CLEAR; URINE BILIRUBIN NEGATIVE (NEGATIVE); URINE COLOR YELLOW; URINE GLUCOSE (UA) 3+ (NEGATIVE); URINE KETONE TRACE (NEGATIVE); URINE LEUK ESTERASE NEGATIVE (NEGATIVE); URINE NITRITE NEGATIVE (NEGATIVE); URINE PROTEIN NEGATIVE (NEGATIVE); URINE UROBILINOGEN 0.2 mg/dL (0.2-1.0)
--- NOTE | 2018-09-06 09:18 | EKG ---
Test Reason : Blood Pressure : / mmHG Vent. Rate : 100 BPM Atrial Rate : 100 BPM P-R Int : 148 ms QRS Dur : 074 ms QT Int : 378 ms P-R-T Axes : 044 016 001 degrees QTc Int : 487 ms NORMAL SINUS RHYTHM MINIMAL VOLTAGE CRITERIA FOR LVH, MAY BE NORMAL VARIANT PROLONGED QT ABNORMAL ECG WHEN COMPARED WITH ECG OF 17-OCT-2016 17:38, NO SIGNIFICANT CHANGE WAS FOUND Confirmed by NANETTE OH MD ([id number]) on 09/06/2018 9:18:17 AM Referred By: Confirmed By:NANETTE OH MD
[2018-09-06] MEDS ORDERED: INSULIN SLIDING SCALE (NOVOLOG) 1 VIAL SQ SCH (11:00)
[2018-09-06] MEDS: FUROSEMIDE 40 MG TABLET (FP) PO SCH (11:39)
[2018-09-06] MEDS: THIAMINE HCL 100 MG TABLET (FP) PO SCH (11:39)
[2018-09-06] MEDS: MULTIVITAMINS (DAILY MVI) TABLET (FP) PO SCH (11:39)
[2018-09-06] MEDS ORDERED: METHADONE HCL 10 MG TABLET PO ONE (13:15)
--- NOTE | 2018-09-06 14:12 | PN ---
Teaching Attending Note Name of Resident: Briseida Hicks ATTENDING PHYSICIAN STATEMENT I saw and evaluated the patient. I reviewed the resident's note and discussed the case with the resident. I agree with the resident's findings and plan as documented. SUBJECTIVE: Complains of L knee pain and R calf swelling/tenderness. No fever. SOB improved. No CP/cough/sputum. OBJECTIVE: Afebrile, Hemodynamically Stable. Last Vital Signs Temp Pulse Resp BP Pulse Ox 98.1 F 85 20 102/81 96 09/06/18 12:15 09/06/18 12:15 09/06/18 12:15 09/06/18 12:15 09/06/18 12:42 HEENT - Atraumatic, Normocephalic. Heart - S1, S2, RRR Lungs - clear to auscultation Abdomen - High BMI. Soft, non-tender. Bowel Sounds normal. Extremities - RLE edema. Tender+ MS - Painful flexion of L knee, no erythema/tenderness/warmth of joint. Neuro - AAO x 3. Tone/Power mildly reduced RLE 4/5 Laboratory Results - last 24 hr 09/06/18 09/06/18 09/06/18 03:15 03:15 03:15 WBC 14.8 H RBC 4.66 Hgb 12.6 Hct 38.4 MCV 82.4 MCH 27.0 MCHC 32.7 RDW 15.4 Plt Count 272 MPV 8.0 Absolute Neuts (auto) 13.2 H Neutrophils % 89.0 H Lymphocytes % 7.8 L D Monocytes % 2.0 L Eosinophils % 0.1 D Basophils % 1.1 Nucleated RBC % 0 Sodium 140 Potassium 4.0 Chloride 102 Carbon Dioxide 29 Anion Gap 9 BUN 13.3 Creatinine 1.1 Est GFR (CKD-EPI)AfAm 87.74 Est GFR (CKD-EPI)NonAf 75.70 POC Glucometer Random Glucose 161 H Calcium 8.8 Total Bilirubin 0.2 AST 44 H ALT 41 Alkaline Phosphatase 115 Troponin I < 0.02 Total Protein 7.4 Albumin 3.9 Urine Color Urine Appearance Urine pH Ur Specific [place] Urine Protein Urine Glucose (UA) Urine Ketones Urine Blood Urine Nitrite Urine Bilirubin Urine Urobilinogen Ur Leukocyte Esterase 09/06/18 09/06/18 08:48 12:10 WBC RBC Hgb Hct MCV MCH MCHC RDW Plt Count MPV Absolute Neuts (auto) Neutrophils % Lymphocytes % Monocytes % Eosinophils % Basophils % Nucleated RBC % Sodium Potassium Chloride Carbon Dioxide Anion Gap BUN Creatinine Est GFR (CKD-EPI)AfAm Est GFR (CKD-EPI)NonAf POC Glucometer 152 Random Glucose Calcium Total Bilirubin AST ALT Alkaline Phosphatase Troponin I Total Protein Albumin Urine Color Yellow Urine Appearance Clear Urine pH 5.5 Ur Specific [place] 1.018 Urine Protein Negative Urine Glucose (UA) 3+ H Urine Ketones Trace H Urine Blood Negative Urine Nitrite Negative Urine Bilirubin Negative Urine Urobilinogen 0.2 Ur Leukocyte Esterase Negative Current Medications Generic Name Dose Route Start Last Admin Trade Name Chuchoq PRN Reason Stop Dose Admin Albuterol/Ipratropium 1 amp 09/06/18 08:00 09/06/18 09:06 Duoneb - NEB 1 amp RQID [facility] Administration Atorvastatin Calcium 20 mg 09/06/18 22:00 Lipitor - PO HS [facility] Buspirone HCl 10 mg 09/06/18 10:00 Buspar - PO BID [facility] Enoxaparin Sodium 40 mg 09/06/18 10:00 09/06/18 09:07 Lovenox - SQ 40 mg DAILY [facility] Administration Folic Acid 1 mg 09/06/18 10:00 09/06/18 09:07 Folic Acid - PO 1 mg DAILY [facility] Administration Furosemide 40 mg 09/06/18 10:00 09/06/18 11:39 Lasix - PO 40 mg DAILY [facility] Administration Azithromycin 500 mg in 250 mls @ 250 mls/hr 09/07/18 10:00 Zithromax 500mg Ivpb (Pre-Docked) IVPB DAILY [facility] Insulin Aspart 1 vial 09/06/18 16:30 Novolog Vial Sliding Scale - SQ TIDAC [facility] Protocol Methadone HCl 30 mg 09/07/18 06:00 Dolophine - PO DAILY@0600 [facility] Methylprednisolone Sodium Succinate 40 mg 09/06/18 10:00 09/06/18 09:07 Solu-Medrol - IVPUSH 40 mg BID [facility] Administration Mirtazapine 15 mg 09/06/18 22:00 Remeron - PO HS [facility] Multivitamins/Minerals/Vitamin C 1 tab 09/06/18 10:00 09/06/18 11:39 Tab-A-Vit - PO 1 tab DAILY [facility] Administration Thiamine HCl 100 mg 09/06/18 10:00 09/06/18 11:39 Vitamin B1 - PO 100 mg DAILY [facility] Administration Home Medications Medication Instructions Recorded Furosemide [Lasix -] 40 mg PO DAILY 01/19/14 Buspirone HCl [Buspar -] 10 mg PO BID #60 tablet 08/18/18 Mirtazapine [Remeron -] 15 mg PO HS #30 tablet 08/18/18 Albuterol Sulfate Inhaler - 1 - 2 inh PO Q4H #1 inhaler 09/05/18 [Ventolin Hfa Inhaler -] Atorvastatin Ca [Lipitor] 20 mg PO HS 09/06/18 Ibuprofen 100 mg PO Q6H PRN 09/06/18 Metformin HCl [Glucophage] 500 mg PO BID 09/06/18 Methadone [Dolophine -] 32 mg PO DAILY 09/06/18 ASSESSMENT/PLAN 53 year old male with history of Asthma/COPD, Polysusbstance Abuse (Ex-Heroin, on Methadone, active Alcohol use), HTN, DM 2, LBP s/p work accident, DJD s/p C- Spine Surgery, Chronic RLE weakness and foot drop, presented to ED (twice) with SOB, onset 2 days ago. He received Decadron and Duonebs in ED but returned due to worsening symptoms. 1. Acute Exacerbation COPD CXR - no acute cardiopulmonary findings. Not hypoxic, not in respiratory distress Leukocytosis likely sec to Decadron received in last 24 hours. IV Methylpred, DuoNebs, Azithromycin, O2 if needed. 2. Chronic RLE Weakness/Partial Foot Drop s/p work accident 7 years ago Ambulates with Cane Previously saw Dr. Nava Will consult for further evaluation. 3. L Knee Pain, likely sec to OA Pain worse on flexion. No joint erythema/tenderness/warmth Will request XRay L knee. PT eval. 4. Chronic LE edema, R > L, sec to venous stasis Duplex LEs - neg for DVT. On Lasix at home. Will get Echo to exclude CHF 5. Polysusbstance Abuse (Ex-Heroin User, Active alcohol user) On methadone. No signs of alcohol withdrawal. Will start MVI, Thiamine, Folic Acid. 6. DM 2 - Metformin held. Will maintain on sliding scale insulin. 7. HLD - continue Lipitor. 8. Psych Disorder, unclear actual diagnosis - on Remeron and Buspar - will continue. DVT Px - Lovenox SQ
[2018-09-06] MEDS ORDERED: PT OWN MED DRAWER 7, Y5N ONE ×2 (15:09→17:40)
[2018-09-06] MEDS ORDERED: IBUPROFEN 400 MG TABLET (FP) PO PRN (15:39)
[2018-09-06] MEDS: INSULIN SLIDING SCALE (NOVOLOG) 1 VIAL SQ SCH (17:27)
[2018-09-06] MEDS: busPIRone HCL 10 MG TABLET (FP) PO SCH ×2 (17:31→23:40)
[2018-09-06] MEDS ORDERED: MIRTAZAPINE 15 MG TABLET (FP) PO SCH (22:00)
[2018-09-06] MEDS ORDERED: ATORVASTATIN CA 20 MG TABLET (FP) PO SCH (22:00)
[2018-09-07] MEDS ORDERED: METHADONE HCL 10 MG TABLET PO SCH (06:00)
[2018-09-07] MEDS: INSULIN SLIDING SCALE (NOVOLOG) 1 VIAL SQ SCH ×2 (06:41→11:47)
[2018-09-07 07:26] LABS: BASO % 0.4 % (0-2.0); HEMATOCRIT 41.7 % (35.4-49); HEMOGLOBIN 13.6 GM/dL (11.7-16.9); LYMPH % 5.3 % (8-40); MCHC 32.6 g/dl (32.0-35.9); MEAN CELL VOLUME 82.8 fl (80-96); MEAN PLT VOLUME 7.4 fl (7.5-11.1); MONO % 2.9 % (3.8-10.2); NEUT % 91.4 % (42.8-82.8); PLATELET COUNT 299 K/MM3 (134-434); RBC 5.03 M/mm3 (4.00-5.60); RDW 15.5 % (11.9-15.9); WHITE BLOOD COUNT 18.9 K/mm3 (4.0-10.0)
[2018-09-07] MEDS: ALBUTEROL SO4 2.5/IPRATROPIUM 0.5 INH SOL 3 ML VIAL.NEB. NEB SCH ×3 (07:30→16:35)
[2018-09-07 08:57] LABS: ALBUMIN 3.8 g/dl (3.4-5.0); BILIRUBIN,TOTAL 0.3 mg/dL (0.2-1); BLOOD UREA NITROGEN 15.3 mg/dL (7-18); CREATININE 0.9 mg/dL (0.55-1.3); PHOSPHOROUS 3.9 mg/dL (2.5-4.9); POTASSIUM 4.8 mmol/L (3.5-5.1); TOT PROT 7.7 g/dl (6.4-8.2)
[2018-09-07] MEDS ORDERED: AZITHROMYCIN IVPB 500 MG/250 ML BAG IVPB SCH (10:00)
--- NOTE | 2018-09-07 11:03 | ECHO ---
Version: 1 Name: SUSANA ALFORD Exam: Adult Echocardiogram Study Date: 09/07/2018, 8:43 AM Age: 53 Years MMode/2D Measurements & Calculations IVSd: 1.08 cm LVIDs: 3.5 cm LVIDd: 5.0 cm LVPWd: 0.58 cm ACS: 2.00 cm LVOT diam: 1.98 cm Doppler Measurements & Calculations MV E max juancho: 90.7 cm/sec Med E/e': 7.6 MV A max juancho: 80.8 cm/sec Med Peak E' Juancho: 11.9 cm/sec MV E/A: 1.12 Lat E/e': 6.8 Lat Peak E' Juancho: 13.3 cm/sec Ao max P.8 mmHg LUCITA(I,D): 2.09 cm Ao mean P.9 mmHg LV V1 mean: 65.9 cm/sec Ao V2 max: 185.8 cm/sec LV V1 mean P.12 mmHg Procedure A complete two-dimensional transthoracic echocardiogram was performed (2D, M-mode, Doppler and color flow Doppler). The patient was in a tachycardic rhythm during the exam. Left Ventricle The left ventricular size, thickness and function are normal. Ejection Fraction = 70%. The transmitr al spectral Doppler flow pattern is suggestive of impaired LV relaxation. The left ventricular wall mot ion is normal. Right Ventricle The right ventricle is normal in size and function. Atria Normal left and right atrial size and function. Mitral Valve The mitral valve is normal. There is trace mitral regurgitation. Tricuspid Valve The tricuspid valve is not well visualized. There was insufficient TR detected to calculate RV systo lic pressure. Aortic Valve There is mild aortic valve thickening. Pulmonic Valve The pulmonic valve is normal in structure and function. Trace pulmonic valvular regurgitation. Great Vessels The aortic root is normal size. Pericardium/Pleura There is no pericardial effusion. There is no pleural effusion. Summary Statements The patient was in a tachycardic rhythm during the exam. The left ventricular size, thickness and function are normal Ejection Fraction = 70%. The right ventricle is normal in size and function. There is trace mitral regurgitation. Trace pulmonic valvular regurgitation. MD Zach Heart 09/07/2018, 10:03 AM Ordering Physician: Leopoldo Adams Performed By: Loree Jose
[2018-09-07] MEDS ORDERED: PT OWN MED DRAWER 7, Y5N ONE ×2 (11:09→14:21)
--- NOTE | 2018-09-07 11:34 | CONSULT ---
Consult - Past Medical History Cardio/Vascular: Yes: HTN Pulmonary: Yes: Asthma - Alcohol/Substance Use Hx Alcohol Use: No - Smoking History Smoking history: Former smoker Have you smoked in the past 12 months: No Aproximately how many cigarettes per day: 7 If you are a former smoker, when did you quit?: 2008 - Social History ADL: Independent History of Recent Travel: No Home Medications - Allergies Allergies/Adverse Reactions: Allergies Allergy/AdvReac Type Severity Reaction Status Date / Time No Known Drug Allergies Allergy Verified 10/16/16 17:00 - Home Medications Home Medications: Ambulatory Orders Furosemide [Lasix -] 40 mg PO DAILY 01/19/14 Buspirone HCl [Buspar -] 10 mg PO BID #60 tablet 08/18/18 Mirtazapine [Remeron -] 15 mg PO HS #30 tablet 08/18/18 Albuterol Sulfate Inhaler - [Ventolin Hfa Inhaler -] 1 - 2 inh PO Q4H #1 inhaler 09/05/18 Atorvastatin Ca [Lipitor] 20 mg PO HS 09/06/18 Ibuprofen 100 mg PO Q6H PRN 09/06/18 Metformin HCl [Glucophage] 500 mg PO BID 09/06/18 Methadone [Dolophine -] 32 mg PO DAILY 09/06/18 Physical Exam Vital Signs: Vital Signs Temperature 97.9 F 09/07/18 05:54 Pulse Rate 65 09/07/18 05:54 Respiratory Rate 20 09/07/18 05:54 Blood Pressure 116/75 09/07/18 05:54 O2 Sat by Pulse Oximetry (%) 95 09/06/18 21:00 Labs: CBC, BMP 09/07/18 06:50 09/07/18 07:00
[2018-09-07] MEDS: methylPREDNISolone NA SUCC 40 MG/1 ML VIAL IVPUSH SCH (11:44)
[2018-09-07] MEDS: FOLIC ACID 1 MG TABLET (FP) PO SCH (11:44)
[2018-09-07] MEDS: busPIRone HCL 10 MG TABLET (FP) PO SCH (11:45)
[2018-09-07] MEDS: MULTIVITAMINS (DAILY MVI) TABLET (FP) PO SCH (11:46)
[2018-09-07] MEDS: FUROSEMIDE 40 MG TABLET (FP) PO SCH (11:46)
[2018-09-07] MEDS: ENOXAPARIN NA (PORCINE) 40 MG/0.4 ML DISP.SYRIN SQ SCH (11:46)
[2018-09-07] MEDS: THIAMINE HCL 100 MG TABLET (FP) PO SCH ×3 (11:47→15:02)
[2018-09-07 11:55] LABS: ANISOCYTOSIS 0; MACROCYTOSIS 0; PLATELET ESTIMATE NORMAL
--- NOTE | 2018-09-07 12:21 | PN ---
Teaching Attending Note Name of Resident: Kasey Liriano ATTENDING PHYSICIAN STATEMENT I saw and evaluated the patient. I reviewed the resident's note and discussed the case with the resident. I agree with the resident's findings and plan as documented. SUBJECTIVE:breathing significantly improved. was able to walk to solarium with minimal effort at the end. no cough. denies Cp, fever, chills, N/V/C/D OBJECTIVE: Last Vital Signs Temp Pulse Resp BP Pulse Ox 98.1 F 72 20 129/78 95 09/07/18 10:00 09/07/18 10:00 09/07/18 10:00 09/07/18 10:00 09/06/18 21:00 General NAD CV S1 S2 RRR no murmur/rub/gallop Lungs CTA B/L no wheezing/rales/rhonchi good inspiratory effort ASSESSMENT AND PLAN: 53 yo M with PMH of Asthma/COPD, Polysusbstance Abuse (Ex-Heroin, on Methadone, active Alcohol use), HTN, DM 2, LBP s/p work accident, DJD s/p C- Spine Surgery , Chronic RLE weakness and foot drop, presented to ED (twice) with SOB, onset 2 days ago and admitted with Acute COPD exacerbation 1. Acute Exacerbation COPD- clinically improved able to walk >50ft without symptoms. cough resolved. received Medrol 40mg BID. can likely swich to medrol dose pack and zpack to complete at home. would benefit from symbicort on discharge and discussed with patient difference between maintenance and rescue inhalers. would benefit from following [facility] pulmonary as outpatient. 2. Chronic RLE weakness with partial foot drop- no change in symptoms for over 7 years. states does not have more numbness than baseline. can f/u [facility] neuro [facility] outpatient 3. B/L LE edema- at baseline per pt with improvement when compliant with lasix. echo pending. can cont home regimen. ERA and leg elevation 4. hx of polysubtance abuse- on methadone. denies current tobacco use (quit >5 years ago) denies IVDA 5. DM- restart home therapy on discharge 6. d/c home today with medication changes and need to f/u with PMD end of this week or next week
--- NOTE | 2018-09-07 12:22 | CONSULT ---
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 Last seen in office consult 04/2016. He reports having anterior cervical surgery in [facility] in 2017 and noted some improvement with walking initially. PMHX: HTN, asthma, previous IVDA (heroin, now maintained on methadone), hx ETOH abuse, and recent diagnosis of diabetes 6 months ago. Readmitted shortly after discharge 09/05 for ongoing SOB, now on azithromycin, ceftriaxone, duonebs and prednisone. Asked to evaluate B/L knee pain. He describes about 7 months of mostly evening hour and nocturnal "pains" in knees starting in left knee and now involving the right. Sometimes when he is sitting too long, he feels like "the tin man." He endorses many awakenings due to knee pains, which improves with stretching. He was told this is "arthritis" and to possibly seek out knee surgery, and attributes this to excess weight he has gained. Office records indicate Dx of RLS and Rx of Pramipexole 05/02 then Pt. lost to f/ u. Venous studies of legs neg for DVT L knee Xray: osteoarthritic changes WBC 18.9; Mg= 3.0; MCV= 82.8 TRISTON: T 98.1. P72. Obese. Cor reg. No bruit. Restricted ROM of neck. Neg SLR. 2+ pitting edema. NEURO: Awake, alert, responsive. OX x 3. CNII-CNXII: Normal including gag. Motor: Fine sustention tremor increased with reinforcement. Mild weakness of intrinsic muscles of right hand with atrophic changes. Isolated R 4-/5 hip flexion, knee extension, PF, eversion and inversion. Reflexes brisk throughout with crossed adduction at knees. B/L Babinskis. Coordination: No FTN dystaxia. Sensation: Min reduced vibration toes. Romberg + Gait: R circumduction. Impression: Cervical Myelopathy Polysubstance abuse Mostly nocturnal paresthesia and insomnia suggest contribution of Restless Limbs Syndrome (RLS). Underlying Toxic-Metabolic Encephalopathy (i.e. asthma) Suggest: Continue antibiotics as per ID Check Fe++, TIBC, Ferritin (Iron deficiency may worsen RLS) Try pramipexole 0.25 mg HS Monitor for signs of ETOH withdrawal such as tachycardia or elevated temperature Neuro f/u as outpatient Thank you very much, Vickey Nava MD
[2018-09-07 13:45] LABS: COCAINE, UR NEGATIVE ng/ml (CUTOFF=300); PHENCYCLIDINE,URINE NEGATIVE ng/ml (CUTOFF=25); URINE AMPHETAMINES NEGATIVE ng/ml (CUTOFF=500); URINE BARBITURATES NEGATIVE ng/ml (CUTOFF=200); URINE BENZODIAZEPINES NEGATIVE ng/ml (CUTOFF=200)
[2018-09-07 14:06] LABS: METHADONE, UR POSITIVE ng/ml (CUTOFF=300); OPIATES, URI POSITIVE ng/ml (CUTOFF=300)
--- NOTE | 2018-09-07 14:53 | PN ---
Progress Note (short form) - Note Progress Note: Vascular Surgery Pt seen and examined. No complaints in feet. Palpable DP pulses bl. Foot care as per podiatry. No open wounds. No vascular intervention needed at this time. Stuart Taylor DO
[2018-09-07 15:44] VITALS: BP 131/75; PULSE 71; TEMP 99.2
[2018-09-07] MEDS ORDERED: PRAMIPEXOLE DIHYDROCHLORIDE 0.25 MG TABLET PO SCH ×2 (22:00)
--- NOTE | 2018-09-08 07:37 | DS ---
Physical Exam: SUBJECTIVE: Patient seen and examined yesterday at bedside. pt was discharged yesterday. pt had no acute complaints. pt requested podiatry for his feet OBJECTIVE: Vital Signs Period Temp Pulse Resp BP Sys/Alexandra Pulse Ox Last 24 Hr 98.1 F-99.2 F 71-72 20-20 129-131/75-78 95 PHYSICAL EXAM GENERAL: The patient is awake, alert, and fully oriented, in no acute distress. LUNGS: Breath sounds equal, clear to auscultation bilaterally, no wheezes, no crackles, no accessory muscle use. HEART: Regular rate and rhythm, S1, S2 without murmur, rub or gallop. ABDOMEN: Soft, nontender, nondistended, normoactive bowel sounds EXTREMITIES: 2+ pulses, warm, well-perfused, no edema, onchomycosis B/L LE SKIN: Warm, dry, normal turgor, no rashes or lesions noted. LABS 09/07/18 06:50 09/07/18 07:00 HOSPITAL COURSE: Date of Admission:09/06/18 53 yo M with PMH of Asthma/COPD, Polysusbstance Abuse (prior heroin use, Methadone 30 mg daily, active Alcohol use), HTN, DM 2, LBP s/p work accident, DJD s/p C- Spine Surgery, Chronic RLE weakness and foot drop, presented to ED with SOB x 2 d. Pt was admitted with Acute COPD exacerbation. Pt was treated with medrol 40 bid and was given azithromycin. pt improved and on exam throughout hospital course, no wheezes were appreciated and pt stated no sob. Pt was discharged with medrol dose pack and z pack. pt was also discharged with symbicort. pt is recommended to follow up with pulmonology outpt for pft and psg. The pt was evaluated by neuro for his weakness. the pt states this is a chronic complaint. neuro recommended no acute intervention and for outpatient follow up. The pt has bl edema treated with lasix. The pt had an echo showing normal EF and trace mitral and pulmonic regurgitation. The pt is recommended to follow up with his pcp. Throughout the hospital course, the pt was continued on his methadone with the confirmed dose. The patient wash having BGM and ISS for diabetes mgmt. the pt was monitored for withdrawal from alcohol. Date of Discharge: 09/08/18 Minutes to complete discharge: 36 Discharge Summary Reason For Visit: ACUTE ASTHMATIC BRONCHITIS Condition: Improved - Instructions Diet, Activity, Other Instructions: You came into the hospital with shortness of breath. You were treated with steroids and antibiotics. You had an X-Ray of your left knee showing that you have osteoarthritis. You had a Echo of your heart showing normal heart function. Some of your heart valves are not functioning as well. Please continue to follow up with your lodging manager. Medication changes: -Please continue to take the Medrol dose pack. -Please continue to take Azithromycin for 5 days. -Please continue to use your inhalers as needed. Please continue your home medications as prescribed. Please follow up with your primary care physician to manage your healthcare. Please follow up with you cloth tester quality, Dr. Yousif. We recommend you getting PFT and PSG to assess your lung function. Please follow up with your neurologist, Dr. Nava, once you are discharged to further manage your weakness. Please follow up with your therapeutic program worker, Dr. Navarro to manage your feet. Please follow up with your lodging manager to manage your heart condition. Please continue to follow a low salt, low sugar diet. Please continue to refrain from smoking as it can be very harmful to your health. Please return to the ER if you have any signs or symptoms of chest pain, shortness of breath, uncontrollable fever, chills, nausea, vomiting, numbness, tingling, or weakness in any part of your body, changes in vision, or slurred speech. Please return to the ER if symptoms persist, worsen, or new symptoms arise. Referrals: Silvino Damon NP [Nurse Practitioner] - Vickey Nava MD [Staff Physician] - Margie Harmon MD [Primary Care Provider] - 1 Week Alek Yousif MD [Staff Physician] - Sirisha Navarro DPM [Staff Physician] - Disposition: HOME - Home Medications Comprehensive Discharge Medication List: Ambulatory Orders Furosemide [Lasix -] 40 mg PO DAILY 01/19/14 Buspirone HCl [Buspar -] 10 mg PO BID #60 tablet 08/18/18 Mirtazapine [Remeron -] 15 mg PO HS #30 tablet 08/18/18 Albuterol Sulfate Inhaler - [Ventolin HFA Inhaler -] 1 - 2 inh PO Q4H #1 inhaler 09/05/18 Atorvastatin Ca [Lipitor] 20 mg PO HS 09/06/18 Metformin HCl [Glucophage] 500 mg PO BID 09/06/18 Methadone [Dolophine -] 32 mg PO DAILY 09/06/18 Azithromycin [Zithromax 1gm Derrick -] 1 gm PO ONCE #1 packet 09/07/18 Budesonide/Formeterol Fumarate [SYMBICORT 80/4.5mcg -] 1 inh PO DAILY #1 cannister 09/07/18 Methylprednisolone [Medrol Dose Derrick] 4 mg PO ASDIR #21 tablet 09/07/18 This patient is new to me today: Yes Date on this admission: 09/08/18 Emergency Visit: No Critical Care patient: No - Discharge Referral Referred to [facility] Med [facility] No ATTENDING PHYSICIAN STATEMENT I saw and evaluated the patient. I reviewed the resident's note and discussed the case with the resident. I agree with the resident's findings and plan as documented. SUBJECTIVE: OBJECTIVE: ASSESSMENT AND PLAN:
== END 2018-09-07 16:40 | disposition home or self-care (01) | DRG 140 ==
LOC: JER 01:50 → JERBED 05:49 → J5S 10:08
PROVIDERS: ATTEND Internal Medicine
DX: J44.1 Chronic obstructive pulmonary disease with (acute) exacerbation (principal); I10 Essential (primary) hypertension; E11.9 Type 2 diabetes mellitus without complications; F11.10 Opioid abuse, uncomplicated; M47.12 Other spondylosis with myelopathy, cervical region; M17.12 Unilateral primary osteoarthritis, left knee; R07.89 Other chest pain; M54.5 Low back pain; R53.1 Weakness; I87.8 Other specified disorders of veins; M21.371 Foot drop, right foot; F10.10 Alcohol abuse, uncomplicated; M25.562 Pain in left knee; E78.5 Hyperlipidemia, unspecified; G47.00 Insomnia, unspecified; G93.41 Metabolic encephalopathy; D72.829 Elevated white blood cell count, unspecified; Z87.891 Personal history of nicotine dependence
CPT/HCPCS: 36415; 71045-TC-FY; 73560-TC-LT-FY; 80053; 80307; 81003; 82962; 83036; 83735; 84100; 84484; 85025; 87086; 93005; 93010; 93306-TC; 93970-TC; 94640; 97116-GP; 97161-GP; 99285-25; J0131

== ENCOUNTER → 2018-10-12 | Outpatient (CLI) | payer OTHER | LOC: YHH 09:05 ==

== ENCOUNTER 2020-07-19 11:04 | Emergency (ER) | payer OTHER ==
[2020-07-19 11:22] VITALS: BMI 35.4
[2020-07-19] MEDS ORDERED: FUROSEMIDE 40 MG TABLET (FP) PO ONE (12:07)
[2020-07-19] MEDS ORDERED: FUROSEMIDE 40 MG TABLET (FP) ONE (12:28)
[2020-07-19 14:06] VITALS: BP 132/82; PULSE 75; TEMP 98.2
== END 2020-07-19 13:45 | disposition home or self-care (01) ==
LOC: JER 11:04
DX: I89.0 Lymphedema, not elsewhere classified (principal)
CPT/HCPCS: 93970-TC; 99284-25

== ENCOUNTER 2020-09-28 16:43 | Inpatient (IN) | payer OTHER ==
[2020-09-28 17:24] VITALS: BMI 36.8
[2020-09-28] MEDS ORDERED: FUROSEMIDE 40 MG TABLET (FP) PO ONE (20:48)
[2020-09-28] MEDS ORDERED: ACETAMINOPHEN 1000 MG/100 ML VIAL (NON FORMULARY) IVPB ONE (20:48)
[2020-09-28] MEDS ORDERED: FUROSEMIDE 40 MG TABLET (FP) ONE (21:22)
[2020-09-28] MEDS ORDERED: ACETAMINOPHEN INJECTION 100 ML IVPB ONE (21:22)
[2020-09-28 23:01] LABS: HEMATOCRIT 38.3 % (35.4-49); HEMOGLOBIN 12.6 GM/dL (11.7-16.9); MCH 26.7 pg (25.7-33.7); MCHC 32.9 g/dl (32.0-35.9); MEAN CELL VOLUME 81.1 fl (80-96); MEAN PLT VOLUME 7.5 fl (7.5-11.1); MONO % 8.5 % (3.8-10.2); NEUT % 69.5 % (42.8-82.8); PLATELET COUNT 288 10^3/uL (134-434); RBC 4.72 M/mm3 (4.00-5.60); RDW 15.6 % (11.9-15.9); WHITE BLOOD COUNT 11.4 K/mm3 (4.0-10.0)
[2020-09-28 23:30] LABS: CHLORIDE 104 mmol/L (98-107); SODIUM 141 mmol/L (136-145)
[2020-09-28 23:34] LABS: ALBUMIN 4.1 g/dl (3.4-5.0); ANION GAP 8 MMOL/L (8-16); BLOOD UREA NITROGEN 16.4 mg/dL (7-18); CALCIUM 8.7 mg/dL (8.5-10.1); CO2 29 mmol/L (21-32); GLUCOSE,RANDOM 76 mg/dL (74-106)
[2020-09-28 23:37] LABS: SGPT/ALT 34 U/L (13-61)
[2020-09-28 23:38] LABS: SGOT/AST 22 U/L (15-37)
[2020-09-28 23:39] LABS: BILIRUBIN,TOTAL 0.4 mg/dL (0.2-1); TOT PROT 7.7 g/dl (6.4-8.2)
[2020-09-28 23:40] LABS: ALK PHOS 91 U/L (45-117)
[2020-09-28 23:42] LABS: N-TERMINAL BNP 16.5 pg/ml (5-125)
[2020-09-29] MEDS: INSULIN (NOVOLOG) ASPART 100 UNITS/ML 10ML VIAL SQ SCH ×4 (06:56→21:30)
[2020-09-29] MEDS: ACETAMINOPHEN 325 MG TABLET (FP) PO PRN ×3 (10:52→23:14)
[2020-09-29] MEDS: ENOXAPARIN NA (PORCINE) 40 MG/0.4 ML DISP.SYRIN SQ SCH (10:52)
[2020-09-29] MEDS: FUROSEMIDE 40 MG TABLET (FP) PO SCH ×2 (10:54→12:04)
[2020-09-29 11:38] LABS: BASO % 0.9 % (0-2.0); EOS % 2.2 % (0-4.5); HEMATOCRIT 35.9 % (35.4-49); LYMPH % 19.8 % (8-40); MCHC 33.3 g/dl (32.0-35.9); MEAN CELL VOLUME 81.1 fl (80-96); MEAN PLT VOLUME 7.7 fl (7.5-11.1); MONO % 8.9 % (3.8-10.2); NEUT % 68.2 % (42.8-82.8); PLATELET COUNT 273 10^3/uL (134-434); RBC 4.43 M/mm3 (4.00-5.60); RDW 16.1 % (11.9-15.9); WHITE BLOOD COUNT 7.4 K/mm3 (4.0-10.0)
[2020-09-29 12:07] LABS: ALBUMIN 3.7 g/dl (3.4-5.0); CALCIUM 8.3 mg/dL (8.5-10.1); MAGNESIUM 2.6 mg/dL (1.8-2.4)
[2020-09-29 12:10] LABS: CREATININE 0.8 mg/dL (0.55-1.3)
[2020-09-29 12:12] LABS: BILIRUBIN,TOTAL 0.6 mg/dL (0.2-1); CHOLESTEROL 144 mg/dL (50-200); TOT PROT 6.9 g/dl (6.4-8.2); TRIGLYCERIDES 182 mg/dL (0-150)
[2020-09-29 12:13] LABS: LDL CHOLESTEROL (ONLY SJRH) 75 mg/dL (5-100)
[2020-09-29 12:15] LABS: HDL CHOLESTEROL 43 mg/dL (40-60)
[2020-09-29] MEDS ORDERED: methaDONE HCL 10 MG TABLET PO ONE (13:00)
[2020-09-29] MEDS ORDERED: methaDONE HCL 40 MG DISPERSABLE TABLET PO ONE (13:00)
[2020-09-29 17:31] LABS: PH,URINE 6.5 (5.0-8.0); URINE APPEARANCE CLEAR; URINE BILIRUBIN NEGATIVE (NEGATIVE); URINE COLOR YELLOW; URINE GLUCOSE (UA) NEGATIVE (NEGATIVE); URINE KETONE NEGATIVE (NEGATIVE); URINE LEUK ESTERASE NEGATIVE (NEGATIVE); URINE NITRITE NEGATIVE (NEGATIVE); URINE PROTEIN NEGATIVE (NEGATIVE); URINE UROBILINOGEN 0.2 mg/dL (0.2-1.0)
[2020-09-29] MEDS ORDERED: LORazepam 1 MG TABLET PO ONE (19:42)
[2020-09-30] MEDS: INSULIN (NOVOLOG) ASPART 100 UNITS/ML 10ML VIAL SQ SCH ×4 (06:08→21:14)
[2020-09-30] MEDS: ACETAMINOPHEN 325 MG TABLET (FP) PO PRN (06:17)
[2020-09-30] MEDS: FUROSEMIDE 40 MG TABLET (FP) PO SCH (09:48)
[2020-09-30] MEDS: ENOXAPARIN NA (PORCINE) 40 MG/0.4 ML DISP.SYRIN SQ SCH (09:49)
[2020-09-30 11:23] LABS: BASO % 1.3 % (0-2.0); EOS % 3.2 % (0-4.5); HEMATOCRIT 36.2 % (35.4-49); HEMOGLOBIN 12.1 GM/dL (11.7-16.9); LYMPH % 26.6 % (8-40); MCH 27.1 pg (25.7-33.7); MCHC 33.3 g/dl (32.0-35.9); MEAN CELL VOLUME 81.4 fl (80-96); MEAN PLT VOLUME 8.1 fl (7.5-11.1); NEUT % 59.9 % (42.8-82.8); PLATELET COUNT 272 10^3/uL (134-434); RBC 4.45 M/mm3 (4.00-5.60); RDW 16.1 % (11.9-15.9); WHITE BLOOD COUNT 6.3 K/mm3 (4.0-10.0)
[2020-09-30 11:24] LABS: INR 1.04 (0.83-1.09); PROTHROMBIN TIME (PATIENT) 12.8 SEC (9.7-13.0)
[2020-09-30 11:27] LABS: ACTIVATED PTT 29.3 SECONDS (25.2-36.5)
[2020-09-30 11:44] LABS: CALCIUM 8.2 mg/dL (8.5-10.1)
[2020-09-30 11:47] LABS: MAGNESIUM 2.4 mg/dL (1.8-2.4)
[2020-09-30 11:48] LABS: CREATININE 0.8 mg/dL (0.55-1.3)
[2020-09-30] MEDS ORDERED: methaDONE HCL 10 MG TABLET PO ONE (12:45)
[2020-09-30] MEDS: PRAMIPEXOLE DIHYDROCHLORIDE 0.25 MG TABLET PO SCH ×2 (14:54→21:41)
[2020-09-30] MEDS: HYDROCHLOROTHIAZIDE 25 MG TABLET (FP) PO SCH (18:30)
[2020-09-30] MEDS: ATORVASTATIN CA 20 MG TABLET (FP) PO SCH (21:41)
[2020-09-30] MEDS: GABAPENTIN 300 MG CAPSULE PO SCH (21:41)
[2020-09-30] MEDS: MIRTAZAPINE 15 MG TABLET (FP) PO SCH (21:41)
[2020-10-01] MEDS: ACETAMINOPHEN 325 MG TABLET (FP) PO PRN ×3 (05:23→20:54)
[2020-10-01] MEDS: INSULIN (NOVOLOG) ASPART 100 UNITS/ML 10ML VIAL SQ SCH ×4 (06:45→22:23)
[2020-10-01 09:29] LABS: HEMATOCRIT 39.6 % (35.4-49); HEMOGLOBIN 13.1 GM/dL (11.7-16.9); MCH 27.4 pg (25.7-33.7); MEAN CELL VOLUME 83.1 fl (80-96); MEAN PLT VOLUME 7.9 fl (7.5-11.1); PLATELET COUNT 273 10^3/uL (134-434); RBC 4.77 M/mm3 (4.00-5.60); RDW 15.5 % (11.9-15.9)
[2020-10-01 10:13] LABS: BLOOD UREA NITROGEN 12.7 mg/dL (7-18); CALCIUM 8.3 mg/dL (8.5-10.1)
[2020-10-01 10:14] LABS: ALBUMIN 3.7 g/dl (3.4-5.0); MAGNESIUM 2.9 mg/dL (1.8-2.4)
[2020-10-01 10:16] LABS: CREATININE 0.8 mg/dL (0.55-1.3)
[2020-10-01 10:17] LABS: BILIRUBIN,TOTAL 0.2 mg/dL (0.2-1); PHOSPHOROUS 3.8 mg/dL (2.5-4.9)
[2020-10-01] MEDS: FUROSEMIDE 40 MG TABLET (FP) PO SCH (10:44)
[2020-10-01] MEDS: ENOXAPARIN NA (PORCINE) 40 MG/0.4 ML DISP.SYRIN SQ SCH (10:44)
[2020-10-01] MEDS: HYDROCHLOROTHIAZIDE 25 MG TABLET (FP) PO SCH ×2 (10:44→15:11)
[2020-10-01] MEDS: PRAMIPEXOLE DIHYDROCHLORIDE 0.25 MG TABLET PO SCH ×2 (10:45→22:23)
[2020-10-01] MEDS: GABAPENTIN 300 MG CAPSULE PO SCH ×2 (10:45→22:23)
[2020-10-01] MEDS ORDERED: methaDONE HCL 10 MG TABLET PO ONE (17:27)
[2020-10-01] MEDS: MIRTAZAPINE 15 MG TABLET (FP) PO SCH (22:23)
[2020-10-01] MEDS: ATORVASTATIN CA 20 MG TABLET (FP) PO SCH (22:23)
[2020-10-02] MEDS: ACETAMINOPHEN 325 MG TABLET (FP) PO PRN ×3 (04:05→20:25)
[2020-10-02] MEDS: INSULIN (NOVOLOG) ASPART 100 UNITS/ML 10ML VIAL SQ SCH ×4 (06:11→22:03)
[2020-10-02 09:35] LABS: HEMATOCRIT 39.5 % (35.4-49); MCH 27.1 pg (25.7-33.7); MEAN CELL VOLUME 82.1 fl (80-96); MEAN PLT VOLUME 7.9 fl (7.5-11.1); PLATELET COUNT 287 10^3/uL (134-434); RBC 4.82 M/mm3 (4.00-5.60); RDW 15.4 % (11.9-15.9); WHITE BLOOD COUNT 7.6 K/mm3 (4.0-10.0)
[2020-10-02 09:53] LABS: BLOOD UREA NITROGEN 11.4 mg/dL (7-18); CALCIUM 8.5 mg/dL (8.5-10.1)
[2020-10-02 09:54] LABS: MAGNESIUM 2.5 mg/dL (1.8-2.4)
[2020-10-02 09:57] LABS: CREATININE 0.7 mg/dL (0.55-1.3); PHOSPHOROUS 4.3 mg/dL (2.5-4.9)
[2020-10-02] MEDS: HYDROCHLOROTHIAZIDE 25 MG TABLET (FP) PO SCH (10:17)
[2020-10-02] MEDS: FUROSEMIDE 40 MG TABLET (FP) PO SCH (10:17)
[2020-10-02] MEDS: PRAMIPEXOLE DIHYDROCHLORIDE 0.25 MG TABLET PO SCH ×2 (10:17→22:03)
[2020-10-02] MEDS: GABAPENTIN 300 MG CAPSULE PO SCH ×2 (10:17→22:03)
[2020-10-02] MEDS: methaDONE HCL 40 MG DISPERSABLE TABLET PO SCH (10:17)
[2020-10-02] MEDS: ENOXAPARIN NA (PORCINE) 40 MG/0.4 ML DISP.SYRIN SQ SCH (10:24)
[2020-10-02] MEDS: MIRTAZAPINE 15 MG TABLET (FP) PO SCH (22:03)
[2020-10-02] MEDS: ATORVASTATIN CA 20 MG TABLET (FP) PO SCH (22:03)
[2020-10-02] MEDS ORDERED: diphenhydrAMINE HCL 25 MG CAPSULE (FP) PO ONE (22:14)
[2020-10-03] MEDS: methaDONE HCL 40 MG DISPERSABLE TABLET PO SCH (06:00)
[2020-10-03] MEDS: ACETAMINOPHEN 325 MG TABLET (FP) PO PRN (06:00)
[2020-10-03] MEDS: INSULIN (NOVOLOG) ASPART 100 UNITS/ML 10ML VIAL SQ SCH ×2 (06:01→11:33)
[2020-10-03 10:13] VITALS: BP 135/71; PULSE 101; TEMP 98.1
[2020-10-03] MEDS: HYDROCHLOROTHIAZIDE 25 MG TABLET (FP) PO SCH (10:13)
[2020-10-03] MEDS: ENOXAPARIN NA (PORCINE) 40 MG/0.4 ML DISP.SYRIN SQ SCH (10:13)
[2020-10-03] MEDS: FUROSEMIDE 40 MG TABLET (FP) PO SCH (10:13)
[2020-10-03] MEDS: PRAMIPEXOLE DIHYDROCHLORIDE 0.25 MG TABLET PO SCH (10:13)
[2020-10-03] MEDS: GABAPENTIN 300 MG CAPSULE PO SCH (10:13)
[2020-10-03] MEDS ORDERED: ACETAMINOPHEN 325 MG TABLET (FP) PO PRN (10:25)
== END 2020-10-03 12:10 | DRG 347 ==
LOC: JER 16:43 → JERBED 09-29 02:18 → J5S 09-29 05:38
PROVIDERS: ADMIT Internal Medicine; ATTEND Internal Medicine
PROC: HZ91ZZZ Pharmacotherapy for Substance Abuse Treatment, Methadone Maintenance (ICD-10-PCS; principal; 2020-09-28)
DX: M47.27 Other spondylosis with radiculopathy, lumbosacral region (principal); J44.9 Chronic obstructive pulmonary disease, unspecified; G25.81 Restless legs syndrome; G89.29 Other chronic pain; E66.9 Obesity, unspecified; Z68.35 Body mass index [BMI] 35.0-35.9, adult; R26.2 Difficulty in walking, not elsewhere classified; I25.10 Atherosclerotic heart disease of native coronary artery without angina pectoris; G47.33 Obstructive sleep apnea (adult) (pediatric); F11.20 Opioid dependence, uncomplicated; I10 Essential (primary) hypertension; E11.9 Type 2 diabetes mellitus without complications; D72.829 Elevated white blood cell count, unspecified; G95.9 Disease of spinal cord, unspecified; M79.89 Other specified soft tissue disorders
CPT/HCPCS: 36415; 71045-TC-FY; 80048; 80053; 80061; 81003; 82550; 82553; 82607; 82728; 82746; 82962; 83010; 83540; 83550; 83615; 83735; 83880; 84100; 84443; 84484; 85025; 85027; 85045; 85610; 85730; 93005; 93010; 93306-TC; 93970-TC; 97116-GP; 97161-GP; 99285-25; C9803; J0131; U0003; U0005

== ENCOUNTER 2021-08-06 04:25 | Day surgery (SDC) | payer OTHER ==
[2021-08-02 08:31] VITALS: BMI 36.0
[2021-08-06] MEDS ORDERED: DEXAMETHASONE SOD PHOSPHATE 10 MG/1 ML VIAL ONE (07:24)
[2021-08-06] MEDS ORDERED: LIDOCAINE HCL/PF 1% SDV 5ML VIAL ONE (07:24)
[2021-08-06] MEDS ORDERED: IOHEXOL 180 MG/1 ML ML IJ ONE (10:28)
[2021-08-06] MEDS ORDERED: DEXAMETHASONE SOD PHOSPHATE 10 MG/1 ML VIAL IVPUSH ONE (10:28)
[2021-08-06] MEDS ORDERED: LIDOCAINE 1% P/F 10 MG/ML VIAL INF ONE (10:28)
[2021-08-06 11:23] VITALS: BP 113/65; PULSE 96; TEMP 97.5
== END 2021-08-06 11:23 | disposition home or self-care (01) ==
LOC: JASU-SURG 04:25
PROVIDERS: ATTEND Pain Medicine Pain Medicine
PROC: 3E0R33Z Introduction of Anti-inflammatory into Spinal Canal, Percutaneous Approach (ICD-10-PCS; 2021-08-06)
PROC: B01BYZZ Fluoroscopy of Spinal Cord using Other Contrast (ICD-10-PCS; 2021-08-06)
PROC: 3E0R3BZ Introduction of Anesthetic Agent into Spinal Canal, Percutaneous Approach (ICD-10-PCS; principal; 2021-08-06 09:00)
DX: M48.061 Spinal stenosis, lumbar region without neurogenic claudication (principal); M54.16 Radiculopathy, lumbar region
CPT/HCPCS: 76000-TC-FY; J1100

== ENCOUNTER 2021-09-06 10:40 | Emergency (ER) | payer OTHER ==
[2021-09-06 11:31] VITALS: TEMP 98.5; BMI 25.0
[2021-09-06] MEDS ORDERED: SODIUM CHLORIDE 0.9% 500 ML INFUS.BAG IV ONE (12:10)
[2021-09-06 13:11] LABS: BASO % 0.6 % (0-2.0); EOS % 0.5 % (0-4.5); HEMATOCRIT 40.6 % (35.4-49); HEMOGLOBIN 13.2 GM/dL (11.7-16.9); MCH 26.2 pg (25.7-33.7); MCHC 32.6 g/dl (32.0-35.9); MEAN CELL VOLUME 80.5 fl (80-96); MEAN PLT VOLUME 7.7 fl (7.5-11.1); MONO % 5.8 % (3.8-10.2); NEUT % 83.1 % (42.8-82.8); PLATELET COUNT 337 10^3/uL (134-434); RBC 5.03 M/mm3 (4.00-5.60); RDW 15.7 % (11.9-15.9); WHITE BLOOD COUNT 10.9 K/mm3 (4.0-10.0)
[2021-09-06 13:21] LABS: INR 1.08 (0.83-1.09); PROTHROMBIN TIME (PATIENT) 12.4 SEC (9.7-13.0)
[2021-09-06 13:24] LABS: ACTIVATED PTT 30.6 SECONDS (25.2-36.5)
[2021-09-06 13:26] LABS: VENOUS BASE EXCESS -0.1 mmol/L (-2-2); VENOUS O2 SATURATION 98.6 % (70-80); VENOUS PCO2 48.9 mmHg (38-52); VENOUS PH 7.345 (7.310-7.410)
[2021-09-06 14:29] LABS: ALBUMIN 4.3 g/dl (3.4-5.0); BLOOD UREA NITROGEN 12.7 mg/dL (7-18); MAGNESIUM 2.4 mg/dL (1.8-2.4)
[2021-09-06 14:32] LABS: CREATININE 0.9 mg/dL (0.55-1.3); PHOSPHOROUS 4.3 mg/dL (2.5-4.9)
[2021-09-06 14:33] LABS: BILIRUBIN,TOTAL 0.3 mg/dL (0.2-1); TOT PROT 7.7 g/dl (6.4-8.2)
[2021-09-06 16:17] VITALS: BP 110/67; PULSE 94; RESP 14
== END 2021-09-06 16:51 | disposition left against medical advice (07) ==
LOC: JER 10:40
DX: R41.82 Altered mental status, unspecified (principal)
CPT/HCPCS: 0241U-QW; 36415; 70450-TC; 71045-TC-FY; 71275-TC; 80053; 80307; 82803; 82962; 83735; 84100; 84484; 85025; 85610; 85730; 87040; 93005; 93010; 99285-25; Q9967

== ENCOUNTER 2021-09-23 10:52 | Emergency (ER) | payer OTHER ==
[2021-09-23 11:13] VITALS: TEMP 98.6; BMI 39.1
[2021-09-23] MEDS ORDERED: ACETAMINOPHEN 325 MG TABLET (FP) ONE (12:08)
[2021-09-23] MEDS ORDERED: ACETAMINOPHEN 325 MG TABLET (FP) PO ONE (12:52)
[2021-09-23 15:19] VITALS: BP 120/60; PULSE 98; RESP 18
== END 2021-09-23 15:45 | disposition home or self-care (01) ==
LOC: JER 10:52
DX: M79.604 Pain in right leg (principal)
CPT/HCPCS: 73552-TC-LT-FY; 73552-TC-RT-FY; 73562-TC-LT-FY; 73562-TC-RT-FY; 73590-TC-LT-FY; 73590-TC-RT-FY; 93005; 93010; 99284-25

== ENCOUNTER 2021-11-15 10:43 | Emergency (ER) | payer OTHER ==
[2021-11-15 10:52] VITALS: RESP 18; TEMP 98
[2021-11-15 10:54] VITALS: BP 157/71; PULSE 105
[2021-11-15 11:01] VITALS: BMI 35.6
== END 2021-11-15 14:24 | disposition home or self-care (01) ==
LOC: JER 10:43
DX: R26.89 Other abnormalities of gait and mobility (principal)
CPT/HCPCS: 82962; 93005; 93010; 99283-25

== ENCOUNTER 2022-03-14 22:25 | Emergency (ER) | payer OTHER ==
[2022-03-14 22:29] VITALS: RESP 18; TEMP 98.7; BMI 36.0
[2022-03-15 00:18] VITALS: BP 114/68; PULSE 84
[2022-03-15] MEDS: ALBUTEROL SO4 2.5/IPRATROPIUM 0.5 INH SOL 3 ML VIAL.NEB. NEB SCH (00:18)
== END 2022-03-15 01:07 | disposition home or self-care (01) ==
LOC: JER 22:25
PROC: 3E0F7GC Introduction of Other Therapeutic Substance into Respiratory Tract, Via Natural or Artificial Opening (ICD-10-PCS; principal; 2022-03-14)
DX: J45.901 Unspecified asthma with (acute) exacerbation (principal)
CPT/HCPCS: 93005; 93010; 99283-25

== ENCOUNTER 2023-03-14 21:39 | Emergency (ER) | payer OTHER ==
[2023-03-14 22:19] VITALS: BP 142/84; PULSE 109; RESP 18; TEMP 99.1; BMI 40.7
[2023-03-14 23:11] LABS: BASO % 0.6 % (0-2.0); EOS % 0.2 % (0-4.5); HEMATOCRIT 39.8 % (35.4-49); HEMOGLOBIN 13.5 GM/dL (11.7-16.9); LYMPH % 6.7 % (8-40); MCH 28.2 pg (25.7-33.7); MCHC 33.8 g/dl (32.0-35.9); MEAN CELL VOLUME 83.3 fl (80-96); MEAN PLT VOLUME 7.4 fl (7.5-11.1); MONO % 4.5 % (3.8-10.2); PLATELET COUNT 303 10^3/uL (134-434); RBC 4.78 M/mm3 (4.00-5.60); RDW 14.8 % (11.9-15.9); WHITE BLOOD COUNT 13.6 K/mm3 (4.0-10.0)
[2023-03-15 00:23] LABS: PH,URINE 5.5 (5.0-8.0); URINE APPEARANCE CLEAR; URINE BILIRUBIN NEGATIVE (NEGATIVE); URINE COLOR YELLOW; URINE GLUCOSE (UA) NEGATIVE (NEGATIVE); URINE KETONE TRACE (NEGATIVE); URINE LEUK ESTERASE NEGATIVE (NEGATIVE); URINE NITRITE NEGATIVE (NEGATIVE); URINE PROTEIN NEGATIVE (NEGATIVE); URINE UROBILINOGEN 0.2 mg/dL (0.2-1.0)
[2023-03-15 00:37] LABS: URINE BARBITURATES NEGATIVE (NEGATIVE)
[2023-03-15 00:38] LABS: COCAINE, UR NEGATIVE (NEGATIVE); PHENCYCLIDINE,URINE NEGATIVE (NEGATIVE); URINE BENZODIAZEPINES NEGATIVE (NEGATIVE)
[2023-03-15 00:51] LABS: POTASSIUM 4.2 mmol/L (3.5-5.1)
[2023-03-15 00:53] LABS: CALCIUM 8.7 mg/dL (8.5-10.1)
[2023-03-15 00:54] LABS: BLOOD UREA NITROGEN 10.3 mg/dL (7-18)
[2023-03-15 00:57] LABS: CREATININE 0.8 mg/dL (0.55-1.3)
[2023-03-15 00:58] LABS: METHADONE, UR POSITIVE (NEGATIVE); OPIATES, URI POSITIVE (NEGATIVE); URINE AMPHETAMINES NEGATIVE (NEGATIVE)
[2023-03-15 00:59] LABS: BILIRUBIN,TOTAL 0.1 mg/dL (0.2-1); TOT PROT 7.6 g/dl (6.4-8.2)
== END 2023-03-15 01:50 | disposition home or self-care (01) ==
LOC: JER 21:39
DX: F19.10 Other psychoactive substance abuse, uncomplicated (principal); R00.0 Tachycardia, unspecified; M21.371 Foot drop, right foot; I89.0 Lymphedema, not elsewhere classified; W19.XXXA Unspecified fall, initial encounter; Z20.822 Contact with and (suspected) exposure to COVID-19
CPT/HCPCS: 0241U-QW; 36415; 80053; 80307; 81003; 85025; 85651; 86140; 87086; 99283-25